=== PATIENT | female | born 1995 | race Caucasian/White ===

== ENCOUNTER → 2024-03-13 07:10 | Outpatient (CLI) | payer BC, SELFPAY ==
--- NOTE | 2024-03-13 | DI.US.S_ITS ---
PROCEDURE: US OB <= 14 WEEKS FETUS INDICATIONS: DATING AND VIABILITY OUTSIDE/PRIOR DATING DATA: Last menstrual period (LMP): Unknown. LMP-based estimated date of delivery (ABRAM): Unknown. First dating scan (date and location): 03/13/2024. Estimated date of delivery (ABRAM) from first dating scan: 10/17/2024. The calculations are made using the ultrasound ABRAM of 10/17/2024. TECHNIQUE: Real-time scanning was performed of the fetus and maternal pelvic organs, with image documentation. Endovaginal scanning was also performed to better visualize the fetus and maternal ovaries. COMPARISON: None. FINDINGS: Embryo: Single live intrauterine is identified with crown-rump length measuring 2.2 cm corresponding to 8 weeks 6 days. Heart rate: 169 beats per minute Complex fluid is present within the gestational sac. No perigestational hemorrhage is identified. Maternal organs: Ovaries demonstrate multiple follicles. Probable corpus luteal cyst is noted on the right.. IMPRESSION: Single live intrauterine with gestational age of 8 weeks 6 days. Somewhat appearance of complex fluid in the gestational sac of uncertain clinical significance. Short interval follow-up is recommended. No definitive perigestational hemorrhage. Recommend followup imaging at 20-22 weeks for dates and anatomy. We strive to produce accurate, complete, and clear reports of imaging services. To assist us in improving patient care, this report was composed using standard report templates and voice recognition software. Therefore, it may contain abnormal punctuation, insertions and/or omissions. Occasional wrong-word or sound-alike substitutions may occur. Though we review the report and make efforts to correct it, we do recommend that the report be read carefully in proper context to recognize any text inaccuracies. Dictated by: Sparkle Martin M.D. on 03/13/2024 at 13:03 Approved by: Sparkle Martin M.D. on 03/13/2024 at 13:07
== END ==
PROVIDERS: Referring Provider Advanced Practice Midwife; Visit Provider Advanced Practice Midwife
DX: O36.80X0 Pregnancy with inconclusive fetal viability, not applicable or unspecified (principal); Z3A.08 8 weeks gestation of pregnancy
CPT/HCPCS: 76801; 76817

== ENCOUNTER → 2024-03-25 06:51 | Outpatient (CLI) | payer BC, SELFPAY ==
--- NOTE | 2024-03-25 06:53 | DI.US.S_ITS ---
PROCEDURE: US OB <= 14 WEEKS FETUS INDICATIONS: FOLLOW UP OUTSIDE/PRIOR DATING DATA: Last menstrual period (LMP): No. LMP-based estimated date of delivery (ARBAM): Unknown. First dating scan (date and location): 03/13/2024. Estimated date of delivery (ABRAM) from first dating scan: 10/17/2024. The calculations are made using the marking ABRAM of 10/17/2024. TECHNIQUE: Real-time scanning was performed of the fetus and maternal pelvic organs, with image documentation. Endovaginal scanning was also performed to better visualize the fetus and maternal ovaries. COMPARISON: [facility], , OB <= 14 WEEKS FETUS, 03/13/2024, 7:25. FINDINGS: Embryo: 3.9 cm pole corresponds with a 10 week 5 day gestation. Heart rate: 162 beats per minute Maternal organs: Ovaries unremarkable. IMPRESSION: Single live intrauterine corresponds with a 10 week 5 day gestation. No evidence of subchorionic bleed Approved by: Duane Muhammad M.D. on 03/25/2024 at 19:44
== END ==
LOC: US 06:52
PROVIDERS: Referring Provider Advanced Practice Midwife; Visit Provider Advanced Practice Midwife
DX: O28.4 Abnormal radiological finding on antenatal screening of mother (principal); Z3A.10 10 weeks gestation of pregnancy
CPT/HCPCS: 76801